=== PATIENT | female | born 1945 | race Caucasian/White ===

== ENCOUNTER 2017-11-05 17:53 | Emergency (ER) | payer MEDICARE, SELFPAY ==
[2017-11-05 17:53] VITALS: BP 154/86; PULSE 69; RESP 18; TEMP 36.3; O2SAT 99; BMI 45.0
--- NOTE | 2017-11-05 18:53 | CT_ITS ---
EXAM: CT SPINE - CERVICAL WITHOUT IV REASON FOR EXAM: Female, 72 years old. FALL RADIATION DOSAGE (If Supplied By Facility): CTDIvol = ( 26.71 ) mGy, DLP = ( 495.30 ) mGycm TECHNIQUE: Multiplanar images were obtained of the cervical spine. IV contrast was not utilized. COMPARISON: None. FINDINGS: The vertebral bodies do maintain their height. The odontoid process is intact. There is no anterolisthesis or fracture. No pre-vertebral soft tissue swelling is seen. The intravertebral disc height is lost. There are scattered lymph nodes in the neck. There are degenerative changes of the osseous structures. There is bilateral facet arthropathy. There are scattered levels of foraminal stenosis. There is diffuse parenchymal thinning of both lungs. This finding is consistent for emphysema. CT/Spine Cervical without Contras IMPRESSION: Degenerative changes of the cervical spine. No acute abnormality of the spine. Electronically Signed: Raleigh Lee MD at 20:09 EST , Service support ,
--- NOTE | 2017-11-05 18:53 | CT_ITS ---
STUDY: CT BRAIN WITHOUT CONTRAST REASON FOR EXAM: Female, 72 years old. FALL, HIT HEAD, ON COUMADIN RADIATION DOSAGE (If Supplied By Facility): CTDIvol = ( 44.99 ) mGy, DLP = ( 779.24 ) mGycm TECHNIQUE: Transaxial CT imaging of the brain was performed without administration of intravenous contrast material. COMPARISON: 08.10.17 FINDINGS: Soft tissue swelling of the left scalp. There is no underlying fracture. Normal calvarium. There are calcifications around the carotid artery. These are noted in the cavernous carotid arteries. There is mild cerebral atrophy with widening of the extra-axial spaces and ventricular dilatation. There are areas of decreased attenuation within the white matter tracts of the supratentorial brain, consistent with microvascular disease changes. Normal basal ganglia and thalami. Normal brainstem. There is mild cerebellar atrophy. There is no intracranial hemorrhage. There are no findings of an acute ischemic infarction. Normal visualized paranasal sinuses. CT/Brain/Head without Contrast IMPRESSION: Chronic involutional changes of the brain. Soft tissue swelling of the left scalp. There is no underlying fracture. Electronically Signed: Raleigh Lee MD at 20:21 EST , Service support ,
--- NOTE | 2017-11-05 18:53 | CT_ITS ---
STUDY: CT ABDOMEN AND PELVIS WITHOUT CONTRAST REASON FOR EXAM: Female, 72 years old. FALL, CHRONIC BACK PAIN RADIATION DOSAGE (If Supplied By Facility): CTDIvol = ( 21.62 ) mGy, DLP = ( 1069.41 ) mGycm TECHNIQUE: Transaxial images were obtained from the dome of the diaphragm to the symphysis pubis without oral contrast, and without intravenous contrast. Sagittal and coronal images were reconstructed. COMPARISON: None. FINDINGS: The visualized lung bases are unremarkable. The visualized portions of the heart are within normal limits. Normal liver. There is non-visualization of the gallbladder, which may be secondary to either contraction or a prior cholecystectomy. Normal spleen. Normal pancreas. Normal bilateral adrenal glands. There are bilateral peripelvic cysts. Normal visualized stomach. Normal small intestine. Stool throughout the colon. The appendix is visualized and appears normal. There are calcifications of the abdominal aorta and vascular structures. This is consistent for atherosclerotic disease. There is no abdominal aortic aneurysm. Normal inferior vena cava. Subcentimeter mesenteric lymph nodes. Normal urinary bladder. There is absence of the uterus consistent with a prior hysterectomy. Normal abdominal wall. There are degenerative changes of the osseous structures. Loss of intervertebral disc height at L5-S1. Vacuum disc phenomenon at L5-S1. Degenerative findings of the hips. Severe bilateral neural foraminal stenosis from L2 to S1. CT/Abdomen/Pelvis without Cont IMPRESSION: There are no acute findings. There are bilateral peripelvic cysts. Hysterectomy. Severe bilateral neural foraminal stenosis from L2 to S1. Other findings as above. Electronically Signed: Raleigh Lee MD at 20:18 EST , Service support ,
[2017-11-05 19:20] LABS: Absolute Neutrophil Count 4.7 X10^3/uL (2.0-7.7); Basophil# 0.02 X10^3/uL; Basophil% 0.3 % (0-1); Eosinophil# 0.14 X10^3/uL; Eosinophils% 1.8 % (0-5); Hematocrit 40.4 % (37-47); Hemoglobin 13.5 g/dl (12.0-15.0); Lymphocyte % 27.2 % (19-41); Mean Corp Hgb Conc 33.4 g/gl (32-36); Mean Corpuscular Hgb 30.3 pg (27.0-32.0); Mean Corpuscular Volume 90.6 fL (81-99); Mean Platelet Vol. 9.9 fl (6.2-12.0); Monocyte# 0.78 X10^3/uL; Monocyte% 10.1 % (0-10); Neutrophil # 4.68 X10^3/uL (2.7-7.7); Neutrophil % 60.5 % (47-70); POSITIVE COUNT NO; POSITIVE DIFFERENTIAL NO; POSITIVE MORPHOLOGY NO; Platelet Count 180 K/mm3 (150-450); RBC Distribution Width CV 14.1 % (11.6-14.6); RBC Distribution Width SD 46.9 fl (35.1-43.9); Red Blood Count 4.46 M/mm3 (4.2-5.4); White Blood Count 7.7 K/mm3 (4.4-11.0)
[2017-11-05 19:28] LABS: International Normalized Ratio 1.8; Prothrombin Time (Protime)PT. 19.8 SECONDS (11.7-14.9)
--- NOTE | 2017-11-05 19:30 | RAD_ITS ---
STUDY: X-RAY - RIGHT KNEE REASON FOR EXAM: Female, 72 years old. Right knee pain TECHNIQUE: 4 view(s) of the knee. COMPARISON: None. FINDINGS: Normal visualized distal femur. Normal visualized proximal tibia and fibula. Normal proximal tibiofibular articulation. There is mild degenerative arthrosis of the medial femorotibial compartment. Normal lateral femorotibial compartment. There is mild degenerative arthrosis of the patellofemoral articulation. The soft tissue structures are unremarkable. RAD/Knee 4 or More Views IMPRESSION: Degenerative arthrosis. Electronically Signed: Raleigh Lee MD at 20:23 EST , Service support ,
[2017-11-05 20:04] VITALS: BP 120/60; PULSE 58; RESP 18; O2SAT 100
[2017-11-05 20:25] LABS: Anion Gap 8 (5-15); BUN 29 mg/dL (7-18); BUN/Creat Ratio 27.6 RATIO (10-20); Calcium,Total 8.7 mg/dL (8.5-10.1); Chloride 106 mmol/L (98-107); Creatinine, Serum 1.05 mg/dL (0.55-1.02); EST Glomerular Filtration Rate 55 mL/min (>60); Est Glom Filt Rate - Afr Amer 66 mL/min (>60); Estimated Creatinine Clearance 37.74 ml/min; Glucose 110 mg/dL (74-106); Potassium 4.4 mmol/L (3.5-5.1); Sodium Level 138 mmol/L (136-145)
--- NOTE | 2017-11-05 21:06 | ED.VISSUMM ---
- ER Visit Summary Date of Service: 11/05/17 Chief Complaint: Fall History of Present Illness: The patient is a 72 F who presents after a fall. She was getting into a vehicle when the hazardous materials driver started her driveway before she was in. She fell straight backwards. She does not believe her she had her head and there was no loss of consciousness. She is complaining of neck pain but states that she has a history neck pain. She also complains of pain in her mid right abdomen. She also complains of right knee pain. She is concerned because she is on warfarin due to history of atrial fibrillation. Physical Examination: Afebrile vitals are stable Heart regular Lungs clear Patient does have some mid right abdominal tenderness no guarding no rebound Active full range of motion ?4 extremities she does have an abrasion over the anterior right knee GCS of 15 with no focal or lateralizing neurological deficits Patient actually has no reproducible neck tenderness Test Results: CBC BMP unremarkable INR 1.8. Knee x-ray shows degenerative changes. CT of the head brain cervical spine and abdomen are unremarkable. Emergency Department Course and Treatment: Imaging unremarkable. Patient discharged. Treatment Plan: [] Disposition: Discharge Impression: Chemical fall Neck strain Abdominal contusion Knee abrasion This note was generated with [employer] dictation software. It may contain incorrect words, spelling, and punctuation that were not noted in review of the chart prior to signing ED Disposition - Plan for ED Patient: Chief Complaint: Fall Referrals: Reema Pena MD [Primary Care Provider] -
--- NOTE | 2017-11-05 21:10 | ED.DCSUM_ITS ---
- ER Visit Summary Date of Service: 11/05/17 Chief Complaint: Fall History of Present Illness: The patient is a 72 F who presents after a fall. She was getting into a vehicle when the delivery truck driver heavy started her driveway before she was in. She fell straight backwards. She does not believe her she had her head and there was no loss of consciousness. She is complaining of neck pain but states that she has a history neck pain. She also complains of pain in her mid right abdomen. She also complains of right knee pain. She is concerned because she is on warfarin due to history of atrial fibrillation. Physical Examination: Afebrile vitals are stable Heart regular Lungs clear Patient does have some mid right abdominal tenderness no guarding no rebound Active full range of motion ?4 extremities she does have an abrasion over the anterior right knee GCS of 15 with no focal or lateralizing neurological deficits Patient actually has no reproducible neck tenderness Test Results: CBC BMP unremarkable INR 1.8. Knee x-ray shows degenerative changes. CT of the head brain cervical spine and abdomen are unremarkable. Emergency Department Course and Treatment: Imaging unremarkable. Patient discharged. Treatment Plan: [] Disposition: Discharge Impression: Chemical fall Neck strain Abdominal contusion Knee abrasion This note was generated with [employer] dictation software. It may contain incorrect words, spelling, and punctuation that were not noted in review of the chart prior to signing ED Disposition - Plan for ED Patient: Chief Complaint: Fall Referrals: Reema Pena MD [Primary Care Provider] -
--- NOTE | 2017-11-05 21:10 | ED.DEP ---
ED Disposition - Plan for ED Patient: Chief Complaint: Fall Instructions: ED Mechanical Fall, ED Abrasion, ED Sprain Strain Neck Referrals: Reema Pena MD [Primary Care Provider] -
[2017-11-05 21:17] VITALS: BP 130/54; PULSE 54; RESP 17; O2SAT 98
== END 2017-11-05 21:18 | disposition home or self-care (01) ==
PROVIDERS: Emergency Provider Emergency Medicine; Family Provider Internal Medicine; PCP Internal Medicine
DX: S16.1XXA Strain of muscle, fascia and tendon at neck level, initial encounter (principal); S30.1XXA Contusion of abdominal wall, initial encounter; S80.211A Abrasion, right knee, initial encounter; W17.89XA Other fall from one level to another, initial encounter; Y93.89 Activity, other specified; Y92.9 Unspecified place or not applicable; I10 Essential (primary) hypertension; E78.00 Pure hypercholesterolemia, unspecified; E03.9 Hypothyroidism, unspecified; I48.91 Unspecified atrial fibrillation; Z79.01 Long term (current) use of anticoagulants; Z79.899 Other long term (current) drug therapy
CPT/HCPCS: 36415; 70450; 72125; 73564; 74176; 80048; 85025; 85610; 99284

== ENCOUNTER → 2017-12-01 11:12 | Outpatient (CLI) | payer MEDICARE, SELFPAY ==
[2017-12-01 13:18] LABS: Vitamin B12 538 pg/mL (211-911)
[2017-12-01 13:33] LABS: Rheumatoid Factor < 10.0 IU/mL (<15); Thyroid Stim Hormone (TSH) 1.27 uIU/mL (0.358-3.74)
[2017-12-02 14:08] LABS: SJOGREN'S Anti-SS-A test < 0.2 AI (0.0-0.9); SJOGREN'S Anti-SS-B test < 0.2 AI (0.0-0.9)
[2017-12-02 15:14] LABS: ANTINUCLEAR ANTIBODIES DIRECT Negative (Negative)
[2017-12-03 14:07] LABS: Albumin 3.7 g/dL (2.9-4.4); Albumin, Ur 7.1 % (.); Alpha-1-Globulin, Ur 3.7 % (.); Alpha-1-Globulins 0.3 g/dL (0.0-0.4); Alpha-2-Globulins 0.8 g/dL (0.4-1.0); Alpha-2-Globulins, Ur 10.3 % (.); Beta Globulin, Ur 26.4 % (.); Cytoplasmic Ab (C-ANCA) <1:20 titer (Neg:<1:20); Gamma Globulin 1.1 g/dL (0.4-1.8); Gamma Globulin, Ur 52.6 % (.); Immunoglobulin A 434 mg/dL (64-422); Immunoglobulin G 1005 mg/dL (700-1600); Immunoglobulin M 154 mg/dL (26-217); M-Spike, Ur % Not Observed % (Not Observed); PROEL- TOTAL PROTEIN 7.1 g/dL (6.0-8.5)
[2017-12-03 14:14] LABS: Creatinine, Urine 0.32 g/L (0.30-3.00)
[2017-12-03 14:15] LABS: Perinuclear Ab (P-ANCA) <1:20 titer (Neg:<1:20); Total Protein, Ur < 4.0 mg/dL (Not Estab.)
== END ==
PROVIDERS: Family Provider Internal Medicine; PCP Internal Medicine; Visit Provider Psychiatry & Neurology Neurology
DX: G62.9 Polyneuropathy, unspecified (principal); E11.9 Type 2 diabetes mellitus without complications; E03.9 Hypothyroidism, unspecified
CPT/HCPCS: 36415; 82175; 82570; 82607; 82784; 83036; 83655; 83825; 84165; 84166; 84443; 86038; 86235; 86256; 86334; 86335; 86431

== ENCOUNTER → 2017-12-17 16:44 | Outpatient (CLI) | payer MEDICARE, SELFPAY ==
--- NOTE | 2017-12-17 16:48 | MRI_ITS ---
STUDY: MRI LUMBAR SPINE WITHOUT CONTRAST REASON FOR EXAM: Female, 72 years old. Frequent falls. TECHNIQUE: Standardized fat and water weighted pulse sequences were obtained in the sagittal and axial planes. COMPARISON: CT of the abdomen and pelvis dated November 05, 2017. FINDINGS: T12-L1: There is narrowing of the disc. There is mild annular disk bulge and osteophyte complex. There is mild degenerative arthropathy of the facet joints. Bilateral neuroforamina are narrowed without MR evidence for nerve impingement. There is no significant central canal stenosis. Normal lumbar lordosis. There is no substantial scoliosis. Normal conus medullaris that terminates at the L1-2 level L1-2: There is narrowing of the disc. There is mild annular disk bulge and osteophyte complex. There is mild degenerative arthropathy of the facet joints. Bilateral neuroforamina are narrowed without MR evidence for nerve impingement. There is no significant central canal stenosis. L2-3: There is mild annular disk bulge and osteophyte complex. There is mild degenerative arthropathy of the facet joints. Bilateral neuroforamina are narrowed without MR evidence for nerve impingement. There is no significant central canal stenosis. L3-4: There is mild annular disk bulge and osteophyte complex. There is mild degenerative arthropathy of the facet joints. Bilateral neuroforamina are narrowed without MR evidence for nerve impingement. There is no significant central canal stenosis. L4-5: There is mild annular disk bulge and osteophyte complex. There is a posterior broad central disc protrusion. There is moderate degenerative arthropathy of the facet joints. Bilateral neuroforamina are narrowed without MR evidence for nerve impingement. There is moderate central canal stenosis. There is mild thickening of ligamentum flavum. L5-S1: There is mild annular disk bulge and osteophyte complex. There is moderate degenerative arthropathy of the facet joints. Bilateral neuroforamina are narrowed without MR evidence for nerve impingement. There is no significant central canal stenosis. Normal visualized sacral ala. Normal visualized paraspinous soft tissue structures. MRI/Spine Lumbar (Routine) IMPRESSION: Multilevel degenerative disc disease and degenerative arthropathy lumbar spine with acquired canal stenosis, neural foraminal narrowing and potential nerve impingement, as described. Electronically Signed: Crystal Mary MD at 6:13 EDT , Service support ,
--- NOTE | 2017-12-17 16:48 | MRI_ITS ---
STUDY: MRI BRAIN WITHOUT CONTRAST REASON FOR EXAM: Female, 72 years old. Balance issues and frequent falls. TECHNIQUE: Standardized multiplanar fat and water weighted pulse sequences were obtained. COMPARISON: CT of the head dated November 05, 2017. FINDINGS: There is mild cerebral atrophy with widening of the extra-axial spaces and ventricular dilatation. There are a limited number of small white matter hyperintensities, distributed throughout the deep white matter tracts of the cerebral hemispheres, consistent with mild chronic white matter ischemic changes. There is no evidence for recent intracranial ischemia or other cause of cytotoxic edema on diffusion weighted imaging (DWI). Normal T2* images of the brain without demonstrated susceptibility artifact. There is no demonstrated hemosiderin stain. Normal bilateral basal ganglia. There is a focus of abnormal signal in the right choroidal fissural region measuring 8.6 mm in size. 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 Normal thalami. There is no extra-axial fluid accumulation. Normal flow voids within the major intracranial circulation suggesting patency by spin echo criteria. Normal sella turcica, pituitary gland, infundibular stalk, optic chiasm and hypothalamus. Normal tectal plate and pineal gland. Normal midbrain, isaias and medulla. Normal cerebellum. Normal basal cisterns. Normal bilateral temporal bones. Normal bilateral internal auditory canals. No demonstrated orbital abnormality, within the constraints of a routine brain study. There is mucoperiosteal inflammatory disease of the paranasal sinuses consistent with mild chronic sinusitis. Normal calvarium and skull base. Normal visualized soft tissue structures. Normal visualized upper cervical spine. MRI/Brain without Contrast IMPRESSION: 1. Involutional changes of the brain, as described above. 2. No MR evidence for acute infarct. Electronically Signed: Crystal Mary MD at 5:40 EDT , Service support ,
--- NOTE | 2017-12-17 16:48 | MRI_ITS ---
STUDY: MRI CERVICAL SPINE WITHOUT CONTRAST REASON FOR EXAM: Female, 72 years old. Cervical myelopathy and neck pain. TECHNIQUE: Standardized fat and water weighted pulse sequences were obtained in the sagittal and axial planes. COMPARISON: CT of the cervical spine dated November 05, 2015. FINDINGS: Normal foramen magnum and brainstem-cervical cord junction. Normal craniovertebral junction. There are degenerative changes of the anterior atlantoaxial articulation. Normal odontoid process. Normal cervical lordosis. Normal vertebral bodies and posterior osseous elements. C2-3: Normal endplates. Normal disc height, signal and morphology. Normal central canal and intervertebral neural foramina. C3-4: There is a small focal central disc protrusion and osteophyte complex. There does not appear to be significant canal stenosis. There is moderate right-sided neural foraminal narrowing. Left neural foramen is patent. There is mild degenerative arthropathy of the facet joints. C4-5: There is narrowing of the disc with a broad central disc protrusion and osteophyte complex. There is moderate acquired canal stenosis with possible impingement of the cervical spinal cord. There is severe bilateral neural foraminal narrowing with potential nerve impingement at the neural foramina. There is uncovertebral and facet joint arthropathy. C5-6: There is a focal right central disc protrusion with the apparent impingement of the right side of spinal cord. There is severe right-sided neural foraminal narrowing with probable nerve impingement. Left neural foramen is moderately narrowed. There is mild central acquired canal stenosis. C6-7: There is a broad central disc protrusion. There is mild central acquired canal stenosis. There is severe left-sided neural foraminal narrowing or probable nerve impingement. The right neural foramen is mildly narrowed. C7-T1: Normal endplates. Normal disc height, signal and morphology. Normal central canal and intervertebral neural foramina. There appears to be a right-sided Tarlov cyst versus pseudomeningocele related to nerve root avulsion.. 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 Normal cervical cord. There is no demonstrated cervical cord syrinx cavity. Normal visualized soft tissue structures. MRI/Spine Cervical (Routine) IMPRESSION: 1. Multilevel degenerative disc disease and degenerative arthropathy of cervical spine with acquired canal stenosis, neural foraminal narrowing and potential nerve impingement as described. 2. Questionable pseudomeningoceles at C7-T1 and T1-T2, as described. Electronically Signed: Crystal Mary MD at 5:56 EDT , Service support ,
== END ==
PROVIDERS: Family Provider Internal Medicine; PCP Internal Medicine; Visit Provider Psychiatry & Neurology Neurology
DX: R29.6 Repeated falls (principal); R26.9 Unspecified abnormalities of gait and mobility; M50.00 Cervical disc disorder with myelopathy, unspecified cervical region; M48.061 Spinal stenosis, lumbar region without neurogenic claudication; M54.16 Radiculopathy, lumbar region
CPT/HCPCS: 70551; 72141; 72148

== ENCOUNTER 2019-01-02 20:16 | Emergency (ER) | payer MEDICARE, SELFPAY ==
[2019-01-02 20:19] VITALS: BP 143/73; PULSE 60; RESP 18; TEMP 36.7; O2SAT 98; BMI 43.4
--- NOTE | 2019-01-02 21:18 | ED.DCSUM_ITS ---
- ER Visit Summary Date of Service: 01/02/19 Chief Complaint: acute on chronic back pain History of Present Illness: The patient is a 73 F with history of chronic back pain who presents for 4 days of acute lower back pain, right worse than left. Patient states she has a history of spinal stenosis and chronic back pain, and she was supposed to get surgery on her back 1 year ago. However the surgery had to be canceled due to her 's health. 4 days ago patient was sitting on the toilet and turned to grab something, resulting in right lower back pain. Patient has had intermittent right leg numbness. She has an appointment on Wednesday with was to orthopedics for evaluation of her back pain. She denies fever, bowel or bladder incontinence or retention, abdominal pain, any current numbness or weakness in the legs, or any other complaints at this time. Pain is worse with movement. Physical Examination: Vital signs: afebrile, hemodynamically stable, no hypoxia on room air General: well nourished, well developed, in no distress Skin: warm, dry, no rash, no pallor HEENT: normocephalic and atraumatic; PERRL, EOMI, moist mucous membranes Cardiovascular: regular rate and rhythm without murmurs, no peripheral edema, 2+ pulses all distal extremities Respiratory: No increased work of breathing, lungs are clear to auscultation bilaterally, no rales, rhonchi or wheezing Abdominal: Abdomen is soft, nontender with normoactive bowel sounds, no guarding or rebound, no masses MSK: Moves all extremities, no deformities, normal strength in all muscle groups of the legs (5/5), sensation intact all dermatomes of the leg, DP pulses 2+ and symmetric, tenderness to palpation of the lumbar spine and bilateral lumbar paraspinal musculature, straight leg raise is negative bilaterally in a seated position Neuro: Awake and alert, oriented ?4. No facial droop, sensation and motor function intact and symmetric Test Results: [] Emergency Department Course and Treatment: Patient presents with acute exacerbation of her chronic back pain. She has no red flag symptoms concerning for cauda equina syndrome. Patient was given oxycodone and Tylenol for pain. Patient was given a prescription for a Medrol Dosepak. Patient will continue her home pain regimen that she is currently on for her back pain. Patient has an appointment already in 1 week for evaluation of her back pain. She will keep this appointment. Patient given return precautions. Discharged home. Treatment Plan: [] Disposition: [] Impression: Acute exacerbation of chronic back pain This note was generated with [employer] dictation software. It may contain incorrect words, spelling, and punctuation that were not noted in review of the chart prior to signing ED Disposition - Plan for ED Patient: Instructions: ED Back Care Tips, ED Neck Back Pain General Prescriptions: MethylPREDNISolone DosePak [Medrol DosePak] 4 mg PO UD #1 box Referrals: Reema Pena MD [Primary Care Provider] - 1 Week if not improving Additional Instructions: Keep your scheduled appointment next Wednesday with the orthopedic doctor. Continue using your pain regimen as prescribed by your doctors in the past. Take the steroid course as prescribed. If at any point you are unable to control your bowels or your bladder, you have weakness or loss of feeling in your legs, fever, or you have any other concerning or worsening symptoms, return immediately to the emergency department for another evaluation.
[2019-01-02] MEDS: Acetaminophen 500 MG Tablet PO (21:21)
[2019-01-02] MEDS: oxyCODONE 5 MG Tablet PO (21:21)
== END 2019-01-02 21:34 | disposition home or self-care (01) ==
PROVIDERS: Emergency Provider Emergency Medicine; Family Provider Internal Medicine; PCP Internal Medicine
DX: M54.5 Low back pain (principal); G89.29 Other chronic pain; I48.91 Unspecified atrial fibrillation; I50.9 Heart failure, unspecified; E07.9 Disorder of thyroid, unspecified; Z79.01 Long term (current) use of anticoagulants; Z79.899 Other long term (current) drug therapy
CPT/HCPCS: 99283

== ENCOUNTER → 2019-01-13 15:23 | Outpatient (CLI) | payer MEDICARE, SELFPAY ==
[2019-01-02 20:19] VITALS: BMI 43.4
--- NOTE | 2019-01-13 15:31 | MRI_ITS ---
STUDY: MRI CERVICAL SPINE WITHOUT CONTRAST REASON FOR EXAM: Female, 73 years old. Cervical myelopathy TECHNIQUE: Standardized fat and water weighted pulse sequences were obtained in the sagittal and axial planes. COMPARISON: December 17, 2017 FINDINGS: Normal foramen magnum and brainstem-cervical cord junction. Normal craniovertebral junction. Normal anterior atlantoaxial articulation. Normal odontoid process. Normal cervical lordosis. Normal vertebral bodies and posterior osseous elements. C2-3: Normal endplates. Normal disc height, signal and morphology. Normal central canal and intervertebral neural foramina. C3-4: Normal endplates. Normal disc height, signal and tiny central disc protrusion. Normal central canal and intervertebral neural foramina. C4-5: Narrowed disc space and endplate spurring with minor bulging disc osteophyte complex. There is narrowing of the central canal and mild compression of the cord. There is severe bilateral neuroforaminal stenosis secondary to bony hypertrophy.. C5-6: Narrowed disc space and endplate spurring. Moderate size right posterolateral/foraminal disc/osteophyte protrusion narrowing the spinal canal and mildly compressing the cord on the right. Severe right neuroforaminal stenosis secondary to disc and bony hypertrophy with moderate impingement on the left C6-7: Normal endplates. Normal disc height, signal and minor bulging disc osteophyte complex.. Normal central canal. Moderate bilateral neuroforaminal stenosis secondary to bony hypertrophy more severe on the left C7-T1: Normal endplates. Normal disc height, signal and morphology. Normal central canal and intervertebral neural foramina. Normal cervical cord. Normal visualized soft tissue structures. There has been slight interval progression of degenerative disease since previous exam MRI/Spine Cervical (Routine) IMPRESSION: No evidence for acute fracture or subluxation.. Moderate spondylosis. Multilevel spinal stenosis secondary to disc disease and bony hypertrophy most severe at C5-6 and C6-7. Findings as above Electronically Signed: Brandin Contreras MD at 21:45 EDT , Service support ,
--- NOTE | 2019-01-13 15:31 | MRI_ITS ---
STUDY: MRI LUMBAR SPINE WITHOUT CONTRAST REASON FOR EXAM: Female, 73 years old. Radiculopathy. Stenosis. TECHNIQUE: Standardized fat and water weighted pulse sequences were obtained in the sagittal and axial planes. COMPARISON: December 17, 2017. FINDINGS: Slightly exaggerated lumbar lordosis. No significant scoliosis. Conus medullaris terminates normally at the L1-2 level. Multilevel anterior osteophyte formation. No acute fracture lines. No dislocation. No cortical destruction. No spondylolisthesis. T12-L1: Normal endplates. Normal disc height, hydration and morphology. Normal bilateral facet joints. Normal central canal and bilateral lateral recesses. Normal bilateral intervertebral neural foramina. L1-2: Mild end plate spondylosis. Disc bulge without central canal narrowing. Normal bilateral facet joints. Normal central canal and bilateral lateral recesses. Normal bilateral intervertebral neural foramina. L2-3: Normal endplates. Disc bulge with mild central canal narrowing. Normal bilateral facet joints. Normal bilateral lateral recesses. Bilateral neural foraminal narrowing without impingement. L3-4: Normal endplates. Disc bulge without central canal narrowing. Normal bilateral facet joints. Normal central canal and bilateral lateral recesses. Bilateral neural foraminal narrowing without impingement. L4-5: Normal endplates. Disc bulge with mild/moderate central canal narrowing. Facet joint arthrosis. Bilateral lateral recess narrowing without impingement. Bilateral neural foraminal narrowing without impingement. Ligamentous calcification. L5-S1: Normal endplates. Shallow disc bulge without central canal narrowing. Facet joint arthrosis. Normal central canal and bilateral lateral recesses. Bilateral neural foraminal narrowing without impingement. Sacrum intact. Paraspinal muscle atrophy. Tiny right renal hypodense lesion, statistically cyst. Bilateral extrarenal pelvis versus parapelvic cyst. Normal aorta. MRI/Spine Lumbar (Routine) IMPRESSION: Multilevel intervertebral disc disease with mild/moderate central canal narrowing predominating at L4-5 Multilevel neuroforaminal narrowing without impingement Multilevel osseous degenerative changes Electronically Signed: Hema Paredes DO at 9:26 EDT Tel , Service support ,
--- NOTE | 2019-01-13 15:31 | MRI_ITS ---
STUDY: MRI BRAIN WITHOUT CONTRAST REASON FOR EXAM: Female, 73 years old. Frequent falls and unsteady gait. TECHNIQUE: Standardized multiplanar fat and water weighted pulse sequences were obtained. COMPARISON: December 17, 2017 FINDINGS: Mild atrophy and periventricular white matter ischemic changes without evidence for acute infarct. Question benign choroidal fissure cyst on the right. Chronic ischemic changes in the right cerebellar hemisphere Normal bilateral basal ganglia. Normal thalami. There is no extra-axial fluid accumulation. Normal flow voids within the major intracranial circulation suggesting patency by spin echo criteria. Partial empty sella deformity likely of no significance. Normal, infundibular stalk, optic chiasm and hypothalamus. Normal tectal plate and pineal gland. Normal midbrain, isaias and medulla. . Normal basal cisterns. Normal bilateral temporal bones. Normal bilateral internal auditory canals. No demonstrated orbital abnormality, within the constraints of a routine brain study. Mild mucosal thickening of the ethmoid air cells.. Normal calvarium and skull base. Normal visualized soft tissue structures. Normal visualized upper cervical spine. No significant change since prior exam MRI/Brain without Contrast IMPRESSION: Mild atrophy and periventricular white matter ischemic changes without evidence for acute infarct. Chronic ischemic changes in the right cerebellar hemisphere Electronically Signed: Brandin Contreras MD at 18:06 EDT , Service support ,
== END ==
PROVIDERS: Family Provider Internal Medicine; PCP Internal Medicine; Referring Provider Psychiatry & Neurology Neurology; Visit Provider Psychiatry & Neurology Neurology
DX: M50.00 Cervical disc disorder with myelopathy, unspecified cervical region (principal); M48.061 Spinal stenosis, lumbar region without neurogenic claudication; M54.16 Radiculopathy, lumbar region; R29.6 Repeated falls; R26.81 Unsteadiness on feet
CPT/HCPCS: 70551; 72141; 72148

== ENCOUNTER → 2019-03-14 07:34 | Outpatient (CLI) | payer MEDICARE, SELFPAY ==
--- NOTE | 2019-03-14 09:40 | NEURO ---
NCS and/or EMG Patient Report Ordering Doctor: Jose Main DATE OF SERVICE: 03/14/19 This is a bilateral lower extremity nerve conduction study and a right lower extremity EMG performed on this 73-year-old female who is otherwise healthy without a history of diabetes but she does have a history of congestive heart failure. She has difficult to describe abnormal sensations in her legs bilaterally. She also has back pain. Bilateral lower extremity sensory motor nerve conduction study demonstrates mild to moderate diffuse slowing of the motor and sensory responses bilaterally symmetrically. There is diminished amplitudes from the common peroneal nerves worse on the right side. F-wave latencies from the bilateral tibial and common peroneal nerves are mildly prolonged. Right lower extremity needle electromyography was performed. Muscles evaluate included the extensor digitorum brevis, abductor hallucis, medial gastrocnemius, anterior tibialis, more proximal muscles could not be evaluated due to body habitus. Distal muscles did demonstrate large motor units these abnormalities resolved more proximally. 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
== END ==
PROVIDERS: Family Provider Internal Medicine; PCP Internal Medicine; Referring Provider Psychiatry & Neurology Neurology; Visit Provider Psychiatry & Neurology Neurology
DX: G62.9 Polyneuropathy, unspecified (principal); R20.0 Anesthesia of skin; R20.2 Paresthesia of skin
CPT/HCPCS: 95885; 95911

== ENCOUNTER → 2019-03-28 07:08 | Outpatient (CLI) | payer MEDICARE, SELFPAY ==
--- NOTE | 2019-03-28 09:48 | NEURO_ITS ---
NCS and/or EMG Patient Report Ordering Doctor: Jose Main DATE OF SERVICE: 03/28/19 This is a bilateral upper extremity nerve conduction study performed on this 73-year-old female with a history of paresthesias in both hands for approximately 5 years. She has mild intermittent neck pain. There is no his tory of diabetes. Symptoms do not awaken her from sleep at night. Previous nerve conduction study of the lower extremities disclosed a length dependent polyneuropathy in the lower extremities. Bilateral upper extremity nerve conduction studies performed demonstrating mild to moderate prolongation of the median motor and sensory distal latencies with preservation of amplitudes and mild reduction of conduction velocities. The ulnar motor and sensory and radial sensory responses are normal. The median F wave latencies are mildly bilaterally prolonged. Impression: Abnormal nerve conduction study of the bilateral upper extremities consistent with mild carpal tunnel syndrome bilaterally.
== END ==
PROVIDERS: Family Provider Internal Medicine; PCP Internal Medicine; Referring Provider Psychiatry & Neurology Neurology; Visit Provider Psychiatry & Neurology Neurology
DX: G62.9 Polyneuropathy, unspecified (principal); R20.0 Anesthesia of skin; R20.2 Paresthesia of skin
CPT/HCPCS: 95913

== ENCOUNTER → 2019-06-07 12:39 | Outpatient (CLI) | payer MEDICARE, SELFPAY ==
--- NOTE | 2019-06-07 12:48 | VDLE_ITS ---
Reason For Study: Venous insufficiency RIGHT LEFT CFV is compressible, spontaneous, phasic, CFV is compressible, spontaneous, phasic, competent and demonstrates normal competent, and demonstrates normal augmentation. augmentation. FV is compressible, spontaneous, phasic, FV is compressible, spontaneous, phasic, competent and demonstrates normal competent and demonstrates normal augmentation. augmentation. POP V is compressible, spontaneous, phasic, POP V is compressible, spontaneous, phasic, competent and demonstrates normal competent and demonstrates normal augmentation. augmentation. T/P Trunk is compressible. T/P Trunk is compressible. PTV is compressible. PTV is compressible. RT PerV is compressible. LT PerV is compressible. SFJ is INCOMPETENT and measures 1.87 x 2.06 SFJ is INCOMPETENT and measures 1.18 x 1.20 cm. cm. GSV proximal thigh measures 0.65 x 0.66 cm. GSV proximal thigh measures 0.71 x 0.75 cm. GSV at knee measures 0.68 x 0.83 cm. GSV at knee measures 0.24 x 0.31 cm. GSV INCOMPETENT throughout for greater than GSV INCOMPETENT throughout for greater than 0.5 seconds. 0.5 seconds. INCOMPETENT commercial sales consultant noted 9 cm above SSV at junction is INCOMPETENT for greater medial malleolus. than 0.5 seconds and measures 0.25 x 0.29 cm. SSV at junction is competent and measures 0.23 x 0.22 cm. Procedure Exam performed in department. Interpretation Summary Deep veins of the lower extremities are bilaterally patent and compressible segmentally. There is no evidence of deep vein thrombosis on either side. Valvular competence appears intact within the proximal deep venous systems bilaterally. The great saphenous veins appear bilaterally patent and compressible segmentally. Sapheno-femoral junctions are bilaterally incompetent . Segmental valvular incompetence is noted within the great saphenous veins bilaterally. The right small saphenous vein is patent and competent. The left small saphenous vein is patent and incompetent. An incompetent commercial sales consultant vein is noted in the right calf, located 9 centimeters proximal to the right medial malleolus. Ordering Physician: Liv Davis Referring Physician: Reema Pena M.D. Performed By: Rachael Orlando RVT
--- NOTE | 2019-06-07 12:48 | ART_ITS ---
Reason For Study: Claudication Procedure A bilateral lower extremity continuous wave Doppler with analog waveform analysis,segmental pressures,and ankle brachial indexes without exercise. Left Segmental Pressures Left brachial= 118mmHg. Left posterior tibial artery = 137mmHg. Left dorsalis pedis artery = 139mmHg. Left digit = 74 mmHg. The left dorsalis pedis waveforms are triphasic. The left posterior tibial artery waveforms are triphasic. Right Segmental Pressures Right brachial= 129mmHg. Right posterior tibial artery = 147mmHg. Right dorsalis pedis artery = 136mmHg. Right digit = 100 mmHg. The right dorsalis pedis waveforms are triphasic. The right posterior tibial artery waveforms are triphasic. Indices The right ankle brachial index by the dorsalis pedis is 1.05. The right ankle brachial index by the posterior tibial artery is 1.14. The right digital-brachial index is 0.78. The left ankle brachial index by the dorsalis pedis is 1.08. The left ankle brachial index by the posterior tibial artery is 1.06. The left digital-brachial index is 0.57. Interpretation Summary Triphasic Doppler waveforms are noted at ankle level bilaterally. Pulse-volume recording waveform amplitudes appear diminished at ankle level bilaterally. Resting ankle-brachial indices are normal bilaterally. The right digital-brachial index is normal. The left digital-brachial index is mildly diminished. Arterial flow appears normal at ankle level bilaterally, as well as at digital level on the right. There is evidence of mild, distal, small-vessel arterial occlusive disease in the left lower extremity. Ordering Physician: Liv Davis Referring Physician: Reema Pena M.D. Performed By: Rachael Orlando RVT
== END ==
PROVIDERS: Family Provider Internal Medicine; PCP Internal Medicine; Referring Provider Podiatrist; Visit Provider Podiatrist
DX: I73.9 Peripheral vascular disease, unspecified (principal); R60.0 Localized edema; I87.2 Venous insufficiency (chronic) (peripheral)
CPT/HCPCS: 93923; 93970

== ENCOUNTER → 2019-10-02 08:05 | Outpatient (CLI) | payer MEDICARE, SELFPAY ==
--- NOTE | 2019-10-02 08:35 | RAD_ITS ---
STUDY: AIR-CONTRAST UPPER GI SERIES. REASON FOR EXAM: Female, 73 years old. Gagging and vomiting in mornings on empty stomach; nausea following vitamins for neuropathy; pt has been on acid reflux medicine since early July FLUOROSCOPY TIME (if supplied): ( 22 seconds ) minutes/seconds. 17 images were obtained. TECHNIQUE: The patient ingested barium. Multiple images of the esophagus, stomach and duodenum were obtained. COMPARISON: None. FINDINGS: There is evidence of a small sliding hiatal hernia with gastroesophageal reflux. No mass lesion is seen. There is no evidence of ulceration. The remainder of the stomach and duodenum are unremarkable. RAD/Upper GI Series Only IMPRESSION: Small sliding hiatal hernia with gastroesophageal junction. Electronically Signed: José Kirkland, at 15:55 EST , Service support ,
== END ==
PROVIDERS: Family Provider Internal Medicine; PCP Internal Medicine; Referring Provider Nurse Practitioner Adult Health; Visit Provider Nurse Practitioner Adult Health
DX: K21.9 Gastro-esophageal reflux disease without esophagitis (principal); K30 Functional dyspepsia
CPT/HCPCS: 74246

== ENCOUNTER → 2019-11-16 20:09 | Outpatient (CLI) | payer MEDICARE, SELFPAY | PROVIDERS: PCP Internal Medicine; Referring Provider Psychiatry & Neurology Psychiatry; Visit Provider Psychiatry & Neurology Psychiatry | DX: G47.33 Obstructive sleep apnea (adult) (pediatric) (principal); E66.9 Obesity, unspecified; I10 Essential (primary) hypertension | CPT/HCPCS: 95811 ==

== ENCOUNTER 2020-11-21 15:51 | Outpatient (RCR) | payer MEDICARE, SELFPAY ==
[2020-11-21] MEDS: COVID-19 VACC, MRNA(PFIZER)/PF 30 MCG/0.3 ML SYRINGE IM (09:58)
[2020-12-12] MEDS: COVID-19 VACC, MRNA(PFIZER)/PF 30 MCG/0.3 ML SYRINGE IM (09:44)
== END 2020-11-21 23:59 ==
LOC: IMMUN 15:51
PROVIDERS: PCP Internal Medicine; Referring Provider Family Medicine; Visit Provider Family Medicine
DX: Z23 Encounter for immunization (principal)
CPT/HCPCS: 0001A; 0002A